=== PATIENT | male | born 1980 | race Caucasian/White ===

== ENCOUNTER 2016-12-18 13:49 | Outpatient (CLI) ==
[2016-06-05 13:31] VITALS: BMI 25.8
--- NOTE | 2016-12-18 14:16 | DI ---
EXAM: Radiographs, paranasal sinus HISTORY: Recurrent sinusitis. COMPARISON: None available. TECHNIQUE: Four views. FINDINGS/IMPRESSION: Mild haziness over the right maxillary sinus may indicate sinusitis. Otherwise, the paranasal sinus es are grossly clear. No facial fracture identified.
--- NOTE | 2016-12-18 14:17 | DI ---
EXAM: CHEST FRONTAL AND LATERAL VIEWS HISTORY: Cough. COMPARISON: FINDINGS: Heart size and mediastinal contour within normal limits. No acute infiltrates. Shania l vascularity with no pleural fluid or pneumothorax. The bony thorax has no acute finding. IMPRESSION: No acute process.
== END 2016-12-18 13:50 | disposition home or self-care (01) ==
LOC: RAD 13:49
PROVIDERS: ATTEND Family Medicine
DX: J01.91 Acute recurrent sinusitis, unspecified (principal)

== ENCOUNTER 2018-07-17 07:34 | Emergency (ER) ==
[2018-07-17 07:34] VITALS: BMI 25.8
[2018-07-17 07:37] VITALS: BP 164/98; TEMP 97.7
--- NOTE | 2018-07-17 08:38 | ED.PDOC ---
General ED Provider: Dr. KARLO CARSON Chief Complaint: Shoulder Pain/Injury Stated Complaint: left shoulder pain woke up with it pain in the rotator muscle groups Time Seen by Physician: 07:39 (seen with NIKOLAS AT ALL TIMES ) Mode of Arrival: Walk-In Information Source: Patient Exam Limitations: No limitations Primary Care Provider: SARAH MAYO Nursing and Triage Documentation Reviewed and Agree: Yes Does patient meet sepsis criteria?: No If yes, has appropriate treatment been initiated?: No System Inflammatory Response Syndrome: Not Applicable Sepsis Protocol: For patient's 13 years and over: Temp is 96.8 and below OR 101 and greater Pulse >90 BPM Resp >20/minute Acutely Altered Mental Status Are patient's symptoms suggestive of a new infection, such as: -Pneumonia -Skin, Soft Tissue -Endocarditis -UTI -Bone, Joint Infection -Implantable Device -Acute Abdominal Infection -Wound Infection -Meningitis -Blood Stream Catheter Infection -Unknown Musculoskeletal Complaint Exam - Shoulder Pain Complaint/Exam Mechanism of Injury: Reports: No known trauma Onset/Duration: WOKE UP WITH IT TODAY NO TRAUMA NO CHEST PAIN Symptoms Are: Still present Timing: Constant Episodes Lasting: SINCE AM TODAY Initial Severity: Mild Current Severity: Mild Location: Reports: Discrete Character: Reports: Aching, Spasmodic Aggravating: Reports: Movement, Lifting, Flexion, Extension, Internal rotation, External rotation, Abduction Associated Signs and Symptoms: Denies: Swelling, Redness, Bruising, Fever, Weakness, Numbness, Tingling Related History: Reports: Similar episode Non-Orthopedic Risk Factors: Reports: None DVT Risk Factors: Reports: None Septic Arthritis Risk Factors: Reports: None Related Surgical History: Reports: None Shoulder Findings: Present: Abnormal contour, Rotation. Absent: Swelling, Ecchymosis Tenderness: Present: Proximal humerus, Rotator cuff muscles Limited Range of Motion: Present: Abduction, Adduction, Flexion, Rotator cuff insertion Differential Diagnoses: Arthritis, Rotator Cuff Injury Review of Systems - Review Of Systems Constitutional: Reports: No symptoms Eyes: Reports: No symptoms Ears, Nose, Mouth, Throat: Reports: No symptoms Respiratory: Reports: No symptoms Cardiac: Reports: No symptoms GI: Reports: No symptoms : Reports: No symptoms Musculoskeletal: Reports: No symptoms Skin: Reports: No symptoms Neurological: Reports: No symptoms Endocrine: Reports: No symptoms Hematologic/Lymphatic: Reports: No symptoms All Other Systems: Reviewed and Negative Past Medical History - Past Medical History Previously Healthy: Yes Endocrine: Reports: None Cardiovascular: Reports: None Respiratory: Reports: None Hematological: Reports: None Gastrointestinal: Reports: None Genitourinary: Reports: None Neuro/Psych: Reports: None Musculoskeletal: Reports: Gout Cancer: Reports: None - Surgical History General Surgical History: Reports: None - Family History Family History: Reports: None - Social History Smoking Status: Current some day smoker Hx Substance Use: No Alcohol Screening: Occasionally Physical Exam - Physical Exam Appearance: Well-appearing, No pain distress, Well-nourished Eyes: KAIA, EOMI, Conjunctiva clear ENT: Ears normal, Nose normal, Oropharynx normal Respiratory: Airway patent, Breath sounds clear, Breath sounds equal, Respirations nonlabored Cardiovascular: RRR, Pulses normal, No rub, No murmur GI/: Soft, Nontender, No masses, Bowel sounds normal, No Organomegaly Musculoskeletal: Limited ROM (LEFT SHOULDER ) Skin: Warm, Dry, Normal color Neurological: Sensation intact, Motor intact, Reflexes intact, Cranial nerves intact, Alert, Oriented Psychiatric: Affect appropriate, Mood appropriate Interpretation - Radiology Interpretation Radiology Interpretation By: ED Physician Radiology Results: No acute changes Critical Care Note - Critical Care Note Total Time (mins): 0 Course - Course Orders, Labs, Meds: Orders Category Date Time Status SHOULDER, LEFT MIN 2V Stat RADS 07/17/18 07:43 Ordered Vital Signs: Temp Pulse Resp BP Pulse Ox 07/17/18 07:35 97.7 F 99 H 16 164/98 H 98 Departure - Departure Time of Disposition: 08:41 Disposition: HOME SELF-CARE Discharge Problem: Shoulder pain, Injury of shoulder region, Rotator cuff arthropathy of left shoulder Instructions: Rotator Cuff Injury (ED) Condition: Good Pt referred to PMD for follow-up: Yes IPMP verified?: No Additional Instructions: Please call your Family Physician as soon as possible to schedule a follow-up appointment.YOU MUST SEE YOUR DOCTOR FOR MRI OF THE SHOULDER . YOUR SHOULDER IS LIMITED IN THE RANGE OF MOTION , THIS RELATED TO ROTATOR CUFF INJURY MOST APPRECIATED ON A M.R.I SCAN Prescriptions: Hydrocodone/Acetaminophen [Ferdinand 10-325 Tablet] 1 each PO Q8HR #7 tablet Allergies/Adverse Reactions: Allergies No Known Allergies Allergy (Verified 07/17/18 07:37) Home Medications: Ambulatory Orders Esomeprazole Magnesium [Nexium] 20 mg PO DAILY 06/05/16 Hydrocodone/Acetaminophen [Ferdinand 10-325 Tablet] 1 each PO Q8HR #7 tablet Disposition Discussed With: Patient
--- NOTE | 2018-07-17 09:25 | DI ---
EXAM: Three views of the left shoulder. History: Left shoulder pain. Findings: No acute fracture or dislocation. No abnormal calcifications or radiopaque foreign bodies . Joint spaces are preserved. Impression: Normal study
== END 2018-07-17 09:10 | disposition home or self-care (01) ==
LOC: ED 07:34
DX: M25.512 Pain in left shoulder (principal); F17.210 Nicotine dependence, cigarettes, uncomplicated
CPT/HCPCS: 99283